=== PATIENT | male | born 1975 | race Caucasian/White ===

== ENCOUNTER → 2016-07-31 | Outpatient (REF) | payer OTHER ==
[2016-07-31 15:58] LABS: BASO # 0.2 K/mm3 (0.0-0.2); BASO % 1.5 % (0.0-1.0); EOS # 0.2 K/mm3 (0.0-0.50); EOS % 1.6 % (0.0-3.0); LARGE UNSTAINED CELL # 0.2 K/mm3 (0.0-0.4); LYMPH # 3.1 K/mm3 (1.5-4.5); LYMPH % 29.9 % (24.0-44.0); MEAN CORPUSCULAR HEMOGLOBIN 30.5 pg (27.0-33.0); MEAN CORPUSCULAR HGB CONC 34.1 g/dl (32.0-36.5); MEAN CORPUSCULAR VOLUME 89.4 fl (80.0-96.0); MONO # 0.4 K/mm3 (0.0-0.8); MONO % 4.5 % (0.0-5.0); NEUTROPHILS # 5.9 K/mm3 (1.8-7.7); NEUTROPHILS % 60.5 % (36.0-66.0); PLATELET COUNT, AUTOMATED 267 k/mm3 (150-450); RED CELL DISTRIBUTION WIDTH 13.1 % (11.5-14.5); WHITE BLOOD COUNT 9.8 K/mm3 (4.0-10.0)
[2016-07-31 16:18] LABS: ALBUMIN 4.2 GM/DL (3.2-5.2); ALBUMIN/GLOBULIN RATIO 1.45 (1.00-1.93); ALKALINE PHOSPHATASE 59 U/L (45-117); ALT/SGPT 54 U/L (12-78); ANION GAP 12 MEQ/L (8-16); AST/SGOT 29 U/L (15-37); BILIRUBIN,TOTAL 0.6 MG/DL (0.2-1.0); BLOOD UREA NITROGEN 11 MG/DL (7-18); CALCIUM LEVEL 8.6 MG/DL (8.5-10.1); CARBON DIOXIDE LEVEL 23 MEQ/L (21-32); CHLORIDE LEVEL 107 MEQ/L (98-107); CREATININE FOR GFR 0.75 MG/DL (0.70-1.30); GLOMERULAR FILTRATION RATE > 60.0 (>60); GLUCOSE, FASTING 91 MG/DL (70-105); POTASSIUM SERUM 4.5 MEQ/L (3.5-5.1); SODIUM LEVEL 142 MEQ/L (136-145); TOTAL PROTEIN 7.1 GM/DL (6.4-8.2)
[2016-07-31 17:08] LABS: ERYTHROCYTE SEDIMENTATION RATE 1 mm/hr (0-15)
== END ==
LOC: M SFHCPLAZ 12:23
PROVIDERS: ATTEND Internal Medicine Infectious Disease
DX: T87.43 Infection of amputation stump, right lower extremity (principal)